=== PATIENT | male | born 1955 | race Caucasian/White ===

== ENCOUNTER 2023-07-16 21:31 | Observation (INO) ==
[2023-07-16] MEDS: SODIUM CHLORIDE 0.9% 1,000 ML IV SCH (22:37)
[2023-07-16 22:38] LABS: Basophils # (auto) 0.03 K/uL (0.00-0.20); Basophils % (auto) 0.3 %; Eosinophils # (auto) 0.09 K/uL (0.00-0.50); Eosinophils % (auto) 0.9 %; Hematocrit (blood only) 41.6 % (42.0-52.0); Hemoglobin 14.3 g/dl (14.0-18.0); Immature Granulocytes # (auto) 0.04 K/uL (0.01-0.20); Immature Granulocytes % (auto) 0.4 %; Lymphocytes # (auto) 1.63 K/uL (1.20-3.40); Lymphocytes % (auto) 16.4 %; Mean Corpuscular Hemoglobin 30.9 pg (25.0-34.0); Mean Corpuscular Hgb Conc 34.4 g/dL (32.0-36.0); Mean Corpuscular Volume 89.8 fL (80.0-100.0); Mean Platelet Volume 10.7 fL (9.4-12.4); Neutrophils # (auto) 7.55 K/uL (1.40-6.50); Platelet Count 286 K/uL (130-400); RDW Coefficient of Variation 11.2 % (11.5-14.5); RDW Standard Deviation 36.3 fL (36.4-46.3); Red Blood Count 4.63 M/uL (4.70-6.10); White Blood Count 9.94 K/ul (4.8-10.8)
[2023-07-16 22:53] LABS: Albumin Level 4.5 gm/dl (3.4-5.0); BUN Creatinine Ratio 21.9 (10-20); Bilirubin,Total 0.4 mg/dl (0.2-1.0); Calcium 9.7 mg/dl (8.6-10.3); Creatinine Clr Calc Pharmacy 68.2 ml/min; Est GFR (African American) 84.7 ml/min; Est GFR (Non-African American) 73.1 ml/min; Globulin 2.3 gm/dl (2.5-4.0); Magnesium 1.8 mg/dl (1.7-2.4); Potassium 4.1 mmol/L (3.5-5.1); Total Protein 6.8 gm/dl (6.0-8.3)
[2023-07-16 22:59] LABS: Troponin I High Sensitivity 7.7 pg/ml (0-20)
[2023-07-16 23:09] LABS: Thyroid Stimulating Hormone 5.997 uIu/ml (0.300-4.500)
[2023-07-16 23:33] LABS: Influenza A virus by PCR Negative (Neg); Influenza B virus by PCR Negative (Neg); RSV by PCR Negative (Neg); SARS CoV2 RNA(COVID-19) Ceph NEGATIVE (Negative)
[2023-07-16 23:45] LABS: T4 Free Thyroxine 1.04 ng/dl (0.61-1.60)
[2023-07-16 23:50] LABS: Appearance Urine Clear (Clear); Bilirubin Urine Negative (Negative); Blood Urine Negative (Negative); Color Urine Yellow; Glucose Urine UA 1+ (Negative); Ketones Urine Trace (Negative); Leukocyte Esterase Urine Negative (Negative); Nitrite Urine Negative (Negative); Protein Urine Negative (Negative); Specific Gravity Urine 1.022 (1.000-1.030); Urobilinogen Urine Negative (Negative); pH Urine 5.5 (4.5-7.5)
--- NOTE | 2023-07-17 01:32 | CT Scan Report ---
Exam(s): CTA HEAD With Contrast IV Amt: 117 ML OPTIRAY 320 EXAM: CT Angiography Head With Intravenous Contrast CLINICAL HISTORY: Stroke. TECHNIQUE: Axial computed tomographic angiography images of the head with intravenous contrast. 3D and MIPS images were created and reviewed. CTDI is 38 mGy and DLP is 546 mGy-cm. Automated exposure control was utilized for the study. A dose lowering technique was utilized adhering to the principles of ALARA. MIP reconstructed images were created and reviewed. CONTRAST: Patient received 117 ML OPTIRAY 320 of IV contrast COMPARISON: No relevant prior studies available. FINDINGS: Right internal carotid artery: No acute findings. Intracranial segment is patent with no significant stenosis. No aneurysm. Right anterior cerebral artery: Unremarkable. No occlusion or significant stenosis. No aneurysm. Right middle cerebral artery: Unremarkable. No occlusion or significant stenosis. No aneurysm. Right posterior cerebral artery: Unremarkable. No occlusion or significant stenosis. No aneurysm. Right vertebral artery: Unremarkable as visualized. Left internal carotid artery: No acute findings. Intracranial segment is patent with no significant stenosis. No aneurysm. Left anterior cerebral artery: Unremarkable. No occlusion or significant stenosis. No aneurysm. Left middle cerebral artery: Unremarkable. No occlusion or significant stenosis. No aneurysm. Left posterior cerebral artery: Unremarkable. No occlusion or significant stenosis. No aneurysm. Left vertebral artery: Unremarkable as visualized. Basilar artery: Unremarkable. No occlusion or significant stenosis. No aneurysm. IMPRESSION: No acute finding of the arteries of the head. Electronically signed by: Carmen Govea MD 07/17/23 01:31 AM
--- NOTE | 2023-07-17 01:34 | CT Scan Report ---
Exam(s): CTA NECK With Contrast IV Amt: 117 ML OPTIRAY 320 EXAM: CT Angiography Neck With Intravenous Contrast CLINICAL HISTORY: Stroke. TECHNIQUE: Routine carotid CT angiography protocol was performed with intravenous contrast. NASCET criteria using the distal ICAs for comparison were used for evaluation of stenoses. MIPS images were created and reviewed. CTDI is 38 mGy and DLP is 546 mGy-cm. Automated exposure control was utilized for the study. A dose lowering technique was utilized adhering to the principles of ALARA. MIP reconstructed images were created and reviewed. CONTRAST: Patient received 117 ML OPTIRAY 320 of IV contrast COMPARISON: None. FINDINGS: VASCULATURE: Right common carotid artery: Unremarkable. No occlusion or significant stenosis. No dissection. Right internal carotid artery: Unremarkable. Extracranial segment is patent with no occlusion or significant stenosis. No dissection. Right external carotid artery: Unremarkable. No occlusion. Right vertebral artery: Unremarkable. No occlusion or significant stenosis. No dissection. Left common carotid artery: There is atherosclerosis of the mid and distal left common carotid artery without significant stenosis. No dissection. Left internal carotid artery: Unremarkable. Extracranial segment is patent with no occlusion or significant stenosis. No dissection. Left external carotid artery: Unremarkable. No occlusion. Left vertebral artery: Hypoplastic left vertebral artery. No occlusion or significant stenosis. No dissection. NECK: Bones/joints: Unremarkable. No acute fracture. Soft tissues: Unremarkable. Lung apices: Clear. CAROTID STENOSIS REFERENCE USING NASCET CRITERIA: % ICA stenosis = (1 - narrowest ICA diameter/diameter of distal cervical ICA) x 100. Mild - <50% stenosis. Moderate - 50-69% stenosis. Severe - 70-94% stenosis. Near occlusion - 95-99% stenosis. Occluded - 100% stenosis. IMPRESSION: No acute findings of the arteries of the neck. Electronically signed by: Carmen Govea MD 07/17/23 01:33 AM
--- NOTE | 2023-07-17 01:38 | CT Scan Report ---
Exam(s): CT HEAD Without Contrast EXAM: CT Head Without Intravenous Contrast CLINICAL HISTORY: neuro deficit, acute stroke suspected. TECHNIQUE: Axial computed tomography images of the head/brain without intravenous contrast. CTDI is 38 mGy and DLP is 546 mGy-cm. Automated exposure control was utilized for the study. A dose lowering technique was utilized adhering to the principles of ALARA. COMPARISON: No relevant prior studies available. FINDINGS: Brain: No intracranial hemorrhage, mass-effect or midline shift. No abnormal extra axial fluid. No evidence of acute infarct. Mild periventricular white matter hypodensities are most consistent with chronic microangiopathy. Ventricles: Unremarkable. No ventriculomegaly. Bones/joints: Unremarkable. No acute fracture. Soft tissues: Unremarkable. Sinuses: Unremarkable as visualized. No acute sinusitis. Mastoid air cells: Unremarkable as visualized. No mastoid effusion. IMPRESSION: No acute intracranial finding. Electronically signed by: Carmen Govea MD 07/17/23 01:37 AM
--- NOTE | 2023-07-17 01:40 | Emergency Department Note ---
Impression & Plan Brain TIA, Hyperglycemia Admit to the [facility] ED Provider Note NAME: MAICOL CONCEPCION AGE: 68 SEX: Male INFORMANT: Patient ED PROVIDER(S): Shannen Berrios DO CHIEF COMPLAINT: Dizziness and left leg weakness PLAN: Disposition: Admit to the [facility] MEDICAL DECISION MAKING: This is a 68-year-old male patient with history of diabetes and hypertension who presents to the emergency department after an episode of dizziness, diaphoresis and left leg weakness. Patient describes his symptoms as sudden onset. He describes himself as trying to walk and ricocheted off of rainey until he was outside. Neuroexam here in the emergency department was back to normal. Laboratory studies revealed hyperglycemia with a blood sugar of 244. The patient does have a history of type 2 diabetes on metformin. He has no leukocytosis or anemia. COVID/flu testing was negative. Troponin was negative. EKG was unremarkable. TSH was 5.99. Urinalysis revealed trace ketones and 1+ glucose. She went for CT of the brain and CT angiograms of the neck and brain which were negative. I felt the patient require further workup/evaluation of TIA versus CVA. I discussed the case with the [facility] and they will evaluate for further inpatient care. Care/management discussed with: The patient and his Triage Nursing notes: Reviewed and agree with them. Vital Signs: reviewed and unremarkable Additional History obtained from: The is at the bedside Chronic Medical/Social Conditions affecting care: Diabetes and hypertension Differential Diagnosis: TIA, CVA, vertigo, orthostasis Diagnostics, independently interpreted by me: ECG: Normal sinus rhythm at a rate of 63 with PVCs. There is no ST segment elevation or signs of ischemia. Cardiac Monitoring: Normal sinus rhythm at a rate of 70 Imaging studies: Portable chest x-ray-as per my independent interpretation- cardiomegaly with no obvious pulmonary infiltrates or opacity CT scan of the brain: As per stat rad CTA of the brain: As per stat rad CTA of the neck: As per stat rad HPI: 68 year old Male arrives for evaluation of episode of diaphoresis, dizziness and left leg weakness. Patient was standing when he suddenly became extremely dizzy and diaphoretic. He thought he might pass out and noted that his left leg was weak. He began to stumble and as he and his describe that he was ricocheted and off the rainey to get outside. He continued to feel quite weak and was standing up against a wall outside when he remained diaphoretic and dizzy for a couple of minutes. He describes having previous episodes of dizziness but with no other associated symptoms that did not last quite this long. PAST MEDICAL HISTORY: Type 2 diabetes, hypertension, BPH, neuropathy, hypothyroidism, GERD, SOCIAL HISTORY: Patient lives with his and [place], HOME MEDICATIONS: See list ALLERGIES: None VITALS: See Below PHYSICAL EXAMINATION: HEENT: Head - normocephalic and atraumatic. Pupils are equal, round, and reactive to light. Extraocular eye muscles are intact and sclera are anicteric. Ears - bilaterally patent canals with noninjected tympanic membranes and no evidence of hemotympanum. Nose - moist nasal mucosa without discharge. Mouth - moist buccal mucosa. Oropharynx is nonerythematous and there is no tonsillar exudate or edema noted. Neck: Supple; no JVD, nuchal rigidity, cervical lymphadenopathy, or auscultated bruits. Heart: Regular rate and rhythm. There is a normal S1 and S2 with no murmurs, clicks, or gallops appreciated. Lungs: Clear to auscultation bilaterally with no wheezes, rales, or rhonchi. Abdomen: Soft, completely nontender, nondistended, with good bowel sounds. There are no palpable pulsatile masses or hepatosplenomegaly. There is no guarding, rigidity, or rebound noted. Extremities: No evidence of cyanosis, clubbing, or edema. There are easily palpable peripheral pulses. Neuro:The patient is awake and alert, oriented to day, time, and place. Muscle strength is 5/5 in all 4 extremities. The patient has equal music department chair strength and equal pedal push and pull. There are no cerebellar signs. Cranial nerves II through XII are grossly intact. Emergency department course: The patient was evaluated in room C-8. A complete history and physical was performed. Twelve-lead EKG was obtained as described above. An order was placed for continuous cardiac monitoring. The patient was in a normal sinus rhythm at a rate of 70. Laboratory studies were drawn as above. IV lock was initiated. Patient went for CT scan of the brain and CT angiograms of the brain and neck. I reviewed the results with the patient and his . I discussed the case with the [facility] Hospitalist and they will evaluate for further inpatient care. Past Med/Surg History Social History Smoking Status: Former smoker Second Hand Exposure: No; Do You Dip or Chew Tobacco: No; Tobacco Cessation Education Requested by Patient: No Hx Alcohol Use: Yes Alcohol type: beer Hx Substance Use: No Preferred Language: Bengali Communication Ability: Effective [employer] Network Technician Required: No Beliefs That Will Affect Care: None Current Living Situation: Spouse Other Information That Helps Us Care for You: No Feels Safe at Home: Yes Safety Concerns: Feels Safe At This Time Assistive Devices: Glasses and Hearing Aid - Bilateral Allergies Allergies Allergy/AdvReac Type Severity Reaction Status Date / Time No Known Allergies Allergy Verified 07/16/23 23:50 Home Meds Home Medications Medication Instructions Recorded Confirmed atorvastatin 20 mg tablet (Lipitor) 20 mg PO DAILY 07/16/23 07/16/23 cholecalciferol (vitamin D3) 125 125 mcg PO Q OTHER DAY 07/16/23 07/16/23 mcg (5,000 unit) tablet (Vitamin D3) cyanocobalamin (vitamin B-12) 5,000 mcg sublingual Q OTHER DAY 07/16/23 07/16/23 5,000 mcg sublingual tablet (Vitamin B-12) gabapentin 600 mg tablet 600 mg PO HS 07/16/23 07/16/23 levothyroxine 50 mcg tablet 50 mcg PO DAILY 07/16/23 07/16/23 losartan 100 mg tablet 100 mg PO DAILY 07/16/23 07/16/23 metformin 500 mg tablet 500 mg PO BID 07/16/23 07/16/23 [id number] tablet 1 tab PO DAILY 07/16/23 07/16/23 omeprazole 20 mg tablet,delayed 20 mg PO DAILY 07/16/23 07/16/23 release tamsulosin 0.4 mg capsule (Flomax) 0.4 mg PO DAILY 07/16/23 07/16/23 Results & Data (ED) Vital Signs Vital Signs - 24 hr 07/16/23 21:40 07/16/23 21:52 07/16/23 21:54 Temperature 36.7 C Temperature Source Temporal Artery Scan Pulse Rate 75 68 Pulse Rate [Apical] 70 Pulse Rate from SpO2 Sensor Pulse Rhythm [Apical] Regular Pulse Strength [Apical] Normal Respiratory Rate 18 17 Respiratory Effort / Characteristics Non-Labored Spontaneous Non-Labored Spontaneous Respiratory Depth Normal Normal Respiratory Pattern Regular Blood Pressure 175/79 H Blood Pressure [Right Arm] 171/109 H Blood Pressure Mean 111 Blood Pressure Mean [Right Arm] 129 Blood Pressure Position [Right Arm] Semi-fowlers Pulse Oximetry 98 97 Oxygen Delivery Method Room Air Room Air Sepsis Recent Fever Within 48 Hours No Sepsis New/Unexplained Change in Mental Status No Sepsis Action Taken by Nursing No Action Required 07/16/23 21:55 07/16/23 22:00 07/16/23 22:00 Temperature Temperature Source Pulse Rate 67 63 Pulse Rate [Apical] Pulse Rate from SpO2 Sensor 68 63 Pulse Rhythm [Apical] Pulse Strength [Apical] Respiratory Rate 13 13 Respiratory Effort / Characteristics Respiratory Depth Respiratory Pattern Blood Pressure 138/91 Blood Pressure [Right Arm] Blood Pressure Mean 105 Blood Pressure Mean [Right Arm] Blood Pressure Position [Right Arm] Pulse Oximetry 97 96 Oxygen Delivery Method Sepsis Recent Fever Within 48 Hours Sepsis New/Unexplained Change in Mental Status Sepsis Action Taken by Nursing 07/16/23 22:30 07/16/23 22:30 07/16/23 23:00 Temperature Temperature Source Pulse Rate 65 70 Pulse Rate [Apical] Pulse Rate from SpO2 Sensor 65 Pulse Rhythm [Apical] Pulse Strength [Apical] Respiratory Rate 10 L 21 Respiratory Effort / Characteristics Respiratory Depth Respiratory Pattern Blood Pressure 144/87 H Blood Pressure [Right Arm] Blood Pressure Mean 101 Blood Pressure Mean [Right Arm] Blood Pressure Position [Right Arm] Pulse Oximetry 97 Oxygen Delivery Method Sepsis Recent Fever Within 48 Hours Sepsis New/Unexplained Change in Mental Status Sepsis Action Taken by Nursing 07/16/23 23:01 07/16/23 23:01 07/16/23 23:32 Temperature Temperature Source Pulse Rate 71 78 Pulse Rate [Apical] Pulse Rate from SpO2 Sensor 70 79 Pulse Rhythm [Apical] Pulse Strength [Apical] Respiratory Rate 20 18 Respiratory Effort / Characteristics Respiratory Depth Respiratory Pattern Blood Pressure 103/78 149/86 H Blood Pressure [Right Arm] Blood Pressure Mean 93 107 Blood Pressure Mean [Right Arm] Blood Pressure Position [Right Arm] Pulse Oximetry 95 97 Oxygen Delivery Method Room Air Sepsis Recent Fever Within 48 Hours Sepsis New/Unexplained Change in Mental Status Sepsis Action Taken by Nursing 07/16/23 23:38 07/17/23 00:00 07/17/23 01:11 Temperature Temperature Source Pulse Rate 63 73 Pulse Rate [Apical] Pulse Rate from SpO2 Sensor 64 72 Pulse Rhythm [Apical] Pulse Strength [Apical] Respiratory Rate 16 10 L Respiratory Effort / Characteristics Respiratory Depth Respiratory Pattern Blood Pressure 143/90 H Blood Pressure [Right Arm] Blood Pressure Mean 107 Blood Pressure Mean [Right Arm] Blood Pressure Position [Right Arm] Pulse Oximetry 98 97 94 Oxygen Delivery Method Room Air Room Air Sepsis Recent Fever Within 48 Hours Sepsis New/Unexplained Change in Mental Status Sepsis Action Taken by Nursing 07/17/23 01:12 07/17/23 01:12 07/17/23 01:30 Temperature Temperature Source Pulse Rate 63 64 Pulse Rate [Apical] Pulse Rate from SpO2 Sensor 62 62 Pulse Rhythm [Apical] Pulse Strength [Apical] Respiratory Rate 19 19 Respiratory Effort / Characteristics Respiratory Depth Respiratory Pattern Blood Pressure 142/94 H Blood Pressure [Right Arm] Blood Pressure Mean 98 Blood Pressure Mean [Right Arm] Blood Pressure Position [Right Arm] Pulse Oximetry 96 93 Oxygen Delivery Method Sepsis Recent Fever Within 48 Hours Sepsis New/Unexplained Change in Mental Status Sepsis Action Taken by Nursing 07/17/23 01:30 07/17/23 01:44 07/17/23 02:02 Temperature Temperature Source Pulse Rate 56 L 71 Pulse Rate [Apical] Pulse Rate from SpO2 Sensor Pulse Rhythm [Apical] Pulse Strength [Apical] Respiratory Rate 12 Respiratory Effort / Characteristics Respiratory Depth Respiratory Pattern Blood Pressure 143/76 H Blood Pressure [Right Arm] Blood Pressure Mean 98 Blood Pressure Mean [Right Arm] Blood Pressure Position [Right Arm] Pulse Oximetry Oxygen Delivery Method Sepsis Recent Fever Within 48 Hours Sepsis New/Unexplained Change in Mental Status Sepsis Action Taken by Nursing 07/17/23 02:18 Temperature Temperature Source Pulse Rate Pulse Rate [Apical] 61 Pulse Rate from SpO2 Sensor Pulse Rhythm [Apical] Regular Pulse Strength [Apical] Normal Respiratory Rate 17 Respiratory Effort / Characteristics Non-Labored Respiratory Depth Normal Respiratory Pattern Regular Blood Pressure Blood Pressure [Right Arm] 143/76 H Blood Pressure Mean Blood Pressure Mean [Right Arm] 98 Blood Pressure Position [Right Arm] Lying Pulse Oximetry 97 Oxygen Delivery Method Room Air Sepsis Recent Fever Within 48 Hours Sepsis New/Unexplained Change in Mental Status Sepsis Action Taken by Nursing Laboratory Data 07/17/23 06:50 07/17/23 06:50 Lab Results 07/16/23 07/16/23 07/16/23 Range/Units 21:44 21:51 22:40 WBC 9.94 (4.8-10.8) K/ul RBC 4.63 L (4.70-6.10) M/uL Hgb 14.3 (14.0-18.0) g/dl Hct 41.6 L (42.0-52.0) % MCV 89.8 (80.0-100.0) fL MCH 30.9 (25.0-34.0) pg MCHC 34.4 (32.0-36.0) g/dL RDW Std Deviation 36.3 L (36.4-46.3) fL RDW Coeff of Robbie 11.2 L (11.5-14.5) % Plt Count 286 (130-400) K/uL MPV 10.7 (9.4-12.4) fL Immature Gran % (Auto) 0.4 % Neut % (Auto) 76.0 % Lymph % (Auto) 16.4 % [place]pine % (Auto) 6.0 % Eos % (Auto) 0.9 % Baso % (Auto) 0.3 % Neut # (Auto) 7.55 H (1.40-6.50) K/uL Lymph # (Auto) 1.63 (1.20-3.40) K/uL Alpine # (Auto) 0.60 H (0.11-0.59) K/uL Eos # (Auto) 0.09 (0.00-0.50) K/uL Baso # (Auto) 0.03 (0.00-0.20) K/uL Immature Gran # (Auto) 0.04 (0.01-0.20) K/uL Sodium 137 (136-145) mmol/L Potassium 4.1 (3.5-5.1) mmol/L Chloride 105 (98-107) mmol/L Carbon Dioxide 25 (21-32) mmol/L Anion Gap 7 (3-11) BUN 23 (6-23) mg/dl Creatinine 1.05 (0.6-1.4) mg/dl Est Cr Clr Drug Dosing 68.2 ml/min Est GFR ( Amer) 84.7 ml/min Est GFR (Non-Af Amer) 73.1 ml/min BUN/Creatinine Ratio 21.9 H (10-20) Glucose 244 H (70-99(Fasting)) mg/dl POC Glucose 206 H (70-99) mg/dl Calcium 9.7 (8.6-10.3) mg/dl Magnesium 1.8 (1.7-2.4) mg/dl Total Bilirubin 0.4 (0.2-1.0) mg/dl AST 15 (13-39) U/L ALT 30 (7-52) U/L Alkaline Phosphatase 67 (34-104) U/L Troponin I High Sens 7.7 (0-20) pg/ml Total Protein 6.8 (6.0-8.3) gm/dl Albumin 4.5 (3.4-5.0) gm/dl Globulin 2.3 L (2.5-4.0) gm/dl Albumin/Globulin Ratio 2.0 (0.9-2) TSH 5.997 H (0.300-4.500) uIu/ml Free T4 1.04 (0.61-1.60) ng/dl Urine Color Urine Appearance (Clear) Urine pH (4.5-7.5) Ur Specific [place] (1.000-1.030) Urine Protein (Negative) Urine Glucose (UA) (Negative) Urine Ketones (Negative) Urine Blood (Negative) Urine Nitrite (Negative) Urine Bilirubin (Negative) Urine Urobilinogen (Negative) Ur Leukocyte Esterase (Negative) SARS-CoV-2 (PCR) NEGATIVE (Negative) Influenza Type A (PCR) Negative (Neg) Influenza Type B (PCR) Negative (Neg) RSV (RT-PCR) Negative (Neg) 07/16/23 07/16/23 Range/Units 23:32 23:52 WBC (4.8-10.8) K/ul RBC (4.70-6.10) M/uL Hgb (14.0-18.0) g/dl Hct (42.0-52.0) % MCV (80.0-100.0) fL MCH (25.0-34.0) pg MCHC (32.0-36.0) g/dL RDW Std Deviation (36.4-46.3) fL RDW Coeff of Robbie (11.5-14.5) % Plt Count (130-400) K/uL MPV (9.4-12.4) fL Immature Gran % (Auto) % Neut % (Auto) % Lymph % (Auto) % Alpine % (Auto) % Eos % (Auto) % Baso % (Auto) % Neut # (Auto) (1.40-6.50) K/uL Lymph # (Auto) (1.20-3.40) K/uL Alpine # (Auto) (0.11-0.59) K/uL Eos # (Auto) (0.00-0.50) K/uL Baso # (Auto) (0.00-0.20) K/uL Immature Gran # (Auto) (0.01-0.20) K/uL Sodium (136-145) mmol/L Potassium (3.5-5.1) mmol/L Chloride (98-107) mmol/L Carbon Dioxide (21-32) mmol/L Anion Gap (3-11) BUN (6-23) mg/dl Creatinine (0.6-1.4) mg/dl Est Cr Clr Drug Dosing ml/min Est GFR ( Amer) ml/min Est GFR (Non-Af Amer) ml/min BUN/Creatinine Ratio (10-20) Glucose (70-99(Fasting)) mg/dl POC Glucose (70-99) mg/dl Calcium (8.6-10.3) mg/dl Magnesium (1.7-2.4) mg/dl Total Bilirubin (0.2-1.0) mg/dl AST (13-39) U/L ALT (7-52) U/L Alkaline Phosphatase (34-104) U/L Troponin I High Sens 7.8 (0-20) pg/ml Total Protein (6.0-8.3) gm/dl Albumin (3.4-5.0) gm/dl Globulin (2.5-4.0) gm/dl Albumin/Globulin Ratio (0.9-2) TSH (0.300-4.500) uIu/ml Free T4 (0.61-1.60) ng/dl Urine Color Yellow Urine Appearance Clear (Clear) Urine pH 5.5 (4.5-7.5) Ur Specific [place] 1.022 (1.000-1.030) Urine Protein Negative (Negative) Urine Glucose (UA) 1+ H (Negative) Urine Ketones Trace H (Negative) Urine Blood Negative (Negative) Urine Nitrite Negative (Negative) Urine Bilirubin Negative (Negative) Urine Urobilinogen Negative (Negative) Ur Leukocyte Esterase Negative (Negative) SARS-CoV-2 (PCR) (Negative) Influenza Type A (PCR) (Neg) Influenza Type B (PCR) (Neg) RSV (RT-PCR) (Neg) Administered Medications Aspirin (Aspirin 81 Mg Ectab) 81 mg PO QAM [facility] Stop: 08/16/23 08:59 Last Admin: 07/17/23 09:30 Dose: 81 mg Documented By: BUCK Atorvastatin Calcium (Atorvastatin 40 Mg Tab) 40 mg PO DAILY [facility] Stop: 08/16/23 08:59 Last Admin: 07/17/23 09:31 Dose: 40 mg Documented By: BUCK Clopidogrel Bisulfate (Clopidogrel Bisulfate 75 Mg Tab) [facility] Stop: 08/16/23 08:59 Last Admin: 07/17/23 09:30 Dose: 75 mg Documented By: BUCK Enoxaparin Sodium (Enoxaparin Inj 40 Mg/0.4 Ml Syr) 40 mg SQ Q24H [facility] Stop: 08/16/23 12:29 Last Admin: 07/17/23 13:59 Dose: Not Given Documented By: BUCK Insulin Aspart (Insulin Aspart Per Unit Charge) 0 units SC ACHS [facility] Stop: 08/16/23 07:29 Last Admin: 07/17/23 18:07 Dose: 6 units Documented By: NATASHA Co-signed By: SHLEL Admin: 07/17/23 13:57 Dose: 3 units Documented By: BUCK Co-signed By: ED Admin: 07/17/23 09:52 Dose: 2 units Documented By: BUCK Co-signed By: AURELIA Levothyroxine Sodium (Levothyroxine Sodium 50 Mcg Tablet) [facility] Stop: 08/16/23 06:29 Last Admin: 07/17/23 06:06 Dose: 50 mcg Documented By: KESHAWN Multivitamins/Minerals (Cerovite Adv Formula Tab) 1 tab PO DAILY [facility] Stop: 08/16/23 08:59 Last Admin: 07/17/23 09:31 Dose: 1 tab Documented By: BUCK Pantoprazole Sodium (Pantoprazole 40 Mg Tab) 40 mg PO DAILY [facility] Stop: 08/16/23 08:59 Last Admin: 07/17/23 09:32 Dose: 40 mg Documented By: BUCK Tamsulosin HCl (Tamsulosin Hcl 0.4 Mg Cap) 0.4 mg PO DAILY [facility] Stop: 08/16/23 08:59 Last Admin: 07/17/23 09:32 Dose: 0.4 mg Documented By: BUCK Discontinued Medications Aspirin (Aspirin 81 Mg Chew) 324 mg PO ONE ONE Stop: 07/17/23 03:33 Last Admin: 07/17/23 03:52 Dose: 324 mg Documented By: KESHAWN Sodium Chloride (Nss) 1,000 mls @ 999 mls/hr IV .Q1H1M [facility] Stop: 07/16/23 23:30 Last Infusion: 07/16/23 23:37 Dose: Infused Documented By: Admin: 07/16/23 22:37 Dose: 999 mls/hr Documented By: ROMA Imaging Data Radiologist's Impression: Chest X-Ray 07/16/23 22:20 SINGLE VIEW CHEST CLINICAL HISTORY: Generalized weakness. FINDINGS: An AP, portable, upright chest radiograph is obtained. No prior studies are available for comparison at the time of dictation. The cardiomediastinal silhouette is top normal for projection. There is mild bibasilar atelectasis. The lungs and pleural spaces are otherwise clear. No pneumothorax is seen. The bony thorax is grossly intact. IMPRESSION: No active disease in the chest. ACT 112: Negative or not required by law. Electronically signed by: Tate Morales M.D. 07/17/2023 7:32 AM Discharge Plan Visit Data Chief Complaint: Syncope (Near Syncope) Stated Complaint: DIZZY, SWEATING, ALMOST FAINTED ED Provider: Shannen Berrios Discharge Problem: Brain TIA, Hyperglycemia Patient Disposition: Admitted As Inpatient Discharge Instructions Interventions: ED Discharge Assessment Last Done: 07/17/23 02:58
--- NOTE | 2023-07-17 02:27 | History & Physical Report ---
Date of Service July 17, 2023 Assessment & Plan (1) TIA (transient ischemic attack): Plan: - Concern for TIA given symptoms - HAs had multiple episodes of dizziness, so arrhythmia also possible. Will monitor on tele, could consider street light wirer as an outpatient - EKG with NSR, PVC; trop=7.8 - CT Head/CTA Head and Neck unremarkable - MRI Brain pending - TTE pending - s/p 324 asp; will plan to start with asp daily, would consider DAPT x 21 days with Plavix pending rest of work-up - continue statin, repeat lipid panel qAM and adjust as appropriate (2) HLD (hyperlipidemia): Plan: - continue statin, repeat lipid panel qAM and adjust as appropriate (3) HTN (hypertension): Plan: - hold losartan, allow for permissive HTN (4) Hypothyroid: Plan: - continue levothyroxine - elevated TSH, with normal free T4; would repeat in 4-6 weeks after acute illness (5) DM2 (diabetes mellitus, type 2): Plan: - hold metformin, SSI while in patient - repeat hemoglobin a1c qAM (6) Neuropathy: Plan: - continue gabapentin (7) GERD (gastroesophageal reflux disease): Plan: - continue pantoprazole Plan Diet: DM2 pending dysphagia screen VTE Prophylaxis: Lovenox Code: Full History of Present Illness Primary Care Provider: Jacques Bender DO 68 year old male with a past medical history of HLD, neuropathy, hypothyrosis, HTN, DM2, GERD presenting [place] [employer] [place]. When leaving the concert began to feel lightheaded. Within a few seconds noticed weakness of left leg. Was able to walk out of the building and symptoms resolved within a few minutes. Notes that he was had episodes of lightheadedness like this before, twice in the last year but they normally normally last about 30s. Denies headache, vision change, chest pain, dyspnea. Symptoms have resolved. Denies any further dizziness, lightheadedness, weakness. In ED: CT Head, CTA Head/Neck unremarkable Allergies Allergy/AdvReac Type Severity Reaction Status Date / Time No Known Allergies Allergy Verified 07/16/23 23:50 Home Medications Medication Instructions Recorded Confirmed Type atorvastatin 20 mg tablet (Lipitor) 20 mg PO DAILY 07/16/23 07/16/23 History cholecalciferol (vitamin D3) 125 125 mcg PO Q OTHER DAY 07/16/23 07/16/23 History mcg (5,000 unit) tablet (Vitamin D3) cyanocobalamin (vitamin B-12) 5,000 mcg sublingual Q OTHER DAY 07/16/23 07/16/23 History 5,000 mcg sublingual tablet (Vitamin B-12) gabapentin 600 mg tablet 600 mg PO HS 07/16/23 07/16/23 History levothyroxine 50 mcg tablet 50 mcg PO DAILY 07/16/23 07/16/23 History losartan 100 mg tablet 100 mg PO DAILY 07/16/23 07/16/23 History metformin 500 mg tablet 500 mg PO BID 07/16/23 07/16/23 History iropkvonotaz-rabuwzii-ygspkc tablet 1 tab PO DAILY 07/16/23 07/16/23 History omeprazole 20 mg tablet,delayed 20 mg PO DAILY 07/16/23 07/16/23 History release tamsulosin 0.4 mg capsule (Flomax) 0.4 mg PO DAILY 07/16/23 07/16/23 History Past Med/Surg History Social History Smoking Status: Former smoker Second Hand Exposure: No; Do You Dip or Chew Tobacco: No; Tobacco Cessation Education Requested by Patient: No Hx Alcohol Use: Yes Alcohol type: beer Hx Substance Use: No Preferred Language: Occitan Communication Ability: Effective 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 Beliefs That Will Affect Care: None Current Living Situation: Spouse Other Information That Helps Us Care for You: No Feels Safe at Home: Yes Safety Concerns: Feels Safe At This Time Assistive Devices: Glasses and Hearing Aid - Bilateral Review of Systems Review of Systems: As per above Physical Exam Physical Exam: Constitutional: well-appearing, no acute distress HEENT: NCAT, no conjunctival injection CV: regular rhythm, no murmur appreciated, extremities well-perfused, no LE edema Resp: CTABL, no wheezes/rales/rhonchi appreciated, no increased work of breathing GI: soft, nondistended, nontender MSK: no gross deformities appreciated Skin: warm, dry, no rash appreciated Neuro: alert, oriented, no focal neurologic deficit appreciated. CN II-XII intact, PERRLA, EOMI, Strength 5/5 UE/LE B/L Results & Data Results & Data Vital Signs (Past 12 Hours) Vital Signs Temp Pulse Pulse Resp BP BP Pulse Ox 07/17/23 01:44 56 L 07/17/23 00:00 63 16 143/90 H 97 07/16/23 23:38 98 07/16/23 23:32 78 18 149/86 H 97 07/16/23 23:01 71 20 95 07/16/23 23:01 103/78 07/16/23 23:00 70 21 07/16/23 22:30 65 10 L 97 07/16/23 22:30 144/87 H 07/16/23 22:00 63 13 96 07/16/23 22:00 138/91 07/16/23 21:55 67 13 97 07/16/23 21:54 68 07/16/23 21:52 70 17 171/109 H 97 07/16/23 21:40 36.7 C 75 18 175/79 H 98 O2 Del Method 07/17/23 01:44 07/17/23 00:00 Room Air 07/16/23 23:38 Room Air 07/16/23 23:32 Room Air 07/16/23 23:01 07/16/23 23:01 07/16/23 23:00 07/16/23 22:30 07/16/23 22:30 07/16/23 22:00 07/16/23 22:00 07/16/23 21:55 07/16/23 21:54 07/16/23 21:52 Room Air 07/16/23 21:40 Room Air Supervising Physician Co-Signing Physician Notes Attending addendum: I have physically seen this patient, have supervised the medical residents activities, and agree with the H&P unless as otherwise noted. Assessment and Plan: TIA- CT head negative, CTA head and neck negative, chest x-ray no acute findings COVID/flu/RSV testing negative Symptoms of dizziness, sweats and left lower extremity weakness have resolved by the time of arrival to the ED Differential including limited to TIA, CVA, complicated migraine The patient will be admitted to telemetry for serial cardiac enzymes, serial EKG's, cardiac rhythm monitoring and a 2-D echocardiogram with Dopplers. MRI brain with contrast ordered Stroke without tPA order set Hypertension- Mild permissive hypertension, holding losartan Diabetes mellitus- Hold metformin Placed on Accu-Cheks with NovoLog SSI Remaining orders and notations as noted Resident Activity Tracking Resident Involvement: Resident Care Provided Care Provided: Adult [facility] Medicine
[2023-07-17] MEDS ORDERED: PHARMACIST DISCHARGE MED REC CONSULT PRN (02:40)
[2023-07-17] MEDS ORDERED: GLUCAGON FOR INJ 1 MG VIAL SQ PRN (03:32)
[2023-07-17] MEDS ORDERED: GLUCOSE 10 TAB/TUBE PO PRN (03:32)
[2023-07-17] MEDS ORDERED: CARBOHYDRATES FOR HYPOGLYCEMIA PO PRN (03:32)
[2023-07-17] MEDS ORDERED: DEXTROSE 50% 50 ML SYRINGE IV PRN (03:32)
[2023-07-17] MEDS ORDERED: GLUCOSE 40% GEL 15 GM TUBE PO PRN (03:32)
[2023-07-17] MEDS: ASPIRIN 81 MG CHEW PO ONE (03:52)
[2023-07-17] MEDS: LEVOTHYROXINE SODIUM 50 MCG TABLET PO SCH (06:06)
[2023-07-17 07:23] LABS: Basophils # (auto) 0.03 K/uL (0.00-0.20); Basophils % (auto) 0.3 %; Eosinophils # (auto) 0.08 K/uL (0.00-0.50); Eosinophils % (auto) 0.8 %; Hematocrit (blood only) 35.4 % (42.0-52.0); Hemoglobin 12.7 g/dl (14.0-18.0); Immature Granulocytes # (auto) 0.04 K/uL (0.01-0.20); Immature Granulocytes % (auto) 0.4 %; Lymphocytes # (auto) 1.65 K/uL (1.20-3.40); Lymphocytes % (auto) 16.9 %; Mean Corpuscular Hemoglobin 31.5 pg (25.0-34.0); Mean Corpuscular Hgb Conc 35.9 g/dL (32.0-36.0); Mean Corpuscular Volume 87.8 fL (80.0-100.0); Mean Platelet Volume 10.6 fL (9.4-12.4); Monocytes # (auto) 0.57 K/uL (0.11-0.59); Monocytes % (auto) 5.8 %; Neutrophils # (auto) 7.41 K/uL (1.40-6.50); Neutrophils % (auto) 75.8 %; Platelet Count 248 K/uL (130-400); RDW Coefficient of Variation 11.1 % (11.5-14.5); RDW Standard Deviation 35.7 fL (36.4-46.3); Red Blood Count 4.03 M/uL (4.70-6.10); White Blood Count 9.78 K/ul (4.8-10.8)
--- NOTE | 2023-07-17 07:33 | XRay Report ---
SINGLE VIEW CHEST CLINICAL HISTORY: Generalized weakness. FINDINGS: An AP, portable, upright chest radiograph is obtained. No prior studies are available for c omparison at the time of dictation. The cardiomediastinal silhouette is top normal for projection. Th ere is mild bibasilar atelectasis. The lungs and pleural spaces are otherwise clear. No pneumothorax is seen. The bony thorax is grossly intact. IMPRESSION: No active disease in the chest. ACT 112: Negative or not required by law. Electronically signed by: Tate Morales M.D. 07/17/2023 7:32 AM
--- NOTE | 2023-07-17 07:34 | Hospitalist Progress Note ---
Date of Service July 17, 2023 Assessment & Plan (1) TIA (transient ischemic attack): Plan: - Presentation concerning for acute TIA given LLE weakness, now resolved - Patient with multiple similar episodes which included lightheadedness, and diaphoresis in the past Differential includes arrhythmias, notably bradyarrhythmias as patient notes low BPs at home into 40s Recommend outpatient cardiac monitoring w/ PCP - Head CT & Neck/Head CTA unremarkable - Brain MRI negative - TTE Pending - S/p 325 mg Aspirin on admission, continue DAPT w/ Aspirin 81 mg and Plavix 75 mg for at least 21 days post TIA - Increase statin to high intensity dosing, now on Atorvastatin 40 mg PO daily Lipid profile unremarkable - Continue to modify risk factors including smoking hx, HTN, HLD, and DM Further management as below (2) HLD (hyperlipidemia): Plan: - As above (3) HTN (hypertension): Plan: - Losartan held for permissive HTN (4) Hypothyroid: Plan: - continue levothyroxine - elevated TSH, with normal free T4; would repeat in 4-6 weeks after acute illness (5) DM2 (diabetes mellitus, type 2): Plan: - hold metformin, SSI while in patient - A1c elevated to 7.8, consider regimen modifications as outpatient - Target A1c < 7 (6) Neuropathy: Plan: - continue gabapentin (7) GERD (gastroesophageal reflux disease): Plan: - continue pantoprazole Plan Diet: DM2, Heart Healthy VTE Prophylaxis: Lovenox Code: Full Admission and Anticipated Discharge Date Admission Date: July 17, 2023 Supervising Physician Co-Signing Physician Notes Attending Physician Supervision Note: I independently interviewed and examined the patient and verified the leung history and physical, reviewed labs and image studies and agree with findings and care plan noted above. Left leg weakness with difficulty ambulation and associated dizziness - -high risk for TIA - brain MRI neg. DAPT initated and statin increased to moderate intensity. Dizziness - -awaiting echo results. No arrhythmia on Tele. check orthostatics. On flomax. Sid Hauser is a 68 year old male with a PMH significant for T2DM, HTN, HLD who presented to the ED yesterday for evaluation of left leg weakness, light- headedness, and diaphoresis. Patient reports that he was standing in a room when he suddenly became light-headed and diaphoretic. He felt as if he may pass out and when he tried to walk to a nearby area to sit, he noticed left leg weakness which he describes as his leg feeling "like a noodle." He notes that he had a slight loss of balance and that he was stumbling throughout the room. His describes it as him crashing into rainey as he was trying to make his way outside. He notes that his leg still felt quite weak even when he was standing up against a wall outside. He remained diaphoretic and dizzy as well. The entire episode lasted for about [address] to the hospital, his had taken his blood pressure and reports that his blood pressure was 152/90. Luca does endorse a history of episodic light-headedness but symptoms are generally transient and last less than a minute and his past episodes are not accompanied by diaphoresis and extremity weakness. He notes that during this most recent episode he did not have any blurry vision, facial drooping, or speech difficulty. He has 20-pack year history of smoking but has quit about 30 years ago. He denies any fever, chills, chest pain, or shortness of breath. No history of arrhythmias or afib. Review of Systems Review of Systems: Negative except those stated in the HPI. Physical Exam Physical Exam: Constitutional: well-appearing and not in acute distress HEENT: NCAT, extraocular motions are intact, pupils are equal and reactive to light, no conjunctival injection CV: regular rhythm, no murmur appreciated, extremities well-perfused, no LE edema Resp: clear to auscultation bilaterally, no wheezes/rales/rhonchi appreciated, no increased work of breathing GI: soft, nondistended, nontender MSK: no gross deformities appreciated Skin: warm, dry, no rash appreciated Neuro: alert, oriented, no focal neurologic deficit appreciated. CN II-XII intact, Strength 5/5 bilaterally in both upper and lower extremities. Diminished sensation to vibration in both R and L lower extremities. Results & Data Results & Data Vital Signs (Past 12 Hours) Vital Signs Temp Pulse Pulse Resp BP BP Pulse Ox 07/17/23 07:15 58 L 14 144/89 H 99 07/17/23 06:00 53 L 18 95 07/17/23 05:30 53 L 15 95 07/17/23 05:30 157/126 H 07/17/23 05:00 54 L 17 95 07/17/23 05:00 152/102 H 07/17/23 04:30 51 L 16 96 07/17/23 04:30 156/96 H 07/17/23 04:00 51 L 15 97 07/17/23 04:00 145/81 H 07/17/23 03:30 169/91 H 07/17/23 03:30 51 L 17 97 07/17/23 03:01 55 L 12 152/80 H 96 07/17/23 03:00 53 L 12 94 07/17/23 02:30 56 L 17 136/77 94 07/17/23 02:29 95 07/17/23 02:18 61 17 143/76 H 97 07/17/23 02:02 71 12 07/17/23 01:44 56 L 07/17/23 01:30 143/76 H 07/17/23 01:30 64 19 93 07/17/23 01:12 63 19 96 07/17/23 01:12 142/94 H 07/17/23 01:11 73 10 L 94 07/17/23 00:00 63 16 143/90 H 97 07/16/23 23:38 98 07/16/23 23:32 78 18 149/86 H 97 07/16/23 23:01 71 20 95 07/16/23 23:01 103/78 07/16/23 23:00 70 21 07/16/23 22:30 65 10 L 97 07/16/23 22:30 144/87 H 07/16/23 22:00 63 13 96 07/16/23 22:00 138/91 07/16/23 21:55 67 13 97 07/16/23 21:54 68 07/16/23 21:52 70 17 171/109 H 97 07/16/23 21:40 36.7 C 75 18 175/79 H 98 O2 Del Method 07/17/23 07:15 Room Air 07/17/23 06:00 07/17/23 05:30 07/17/23 05:30 07/17/23 05:00 07/17/23 05:00 07/17/23 04:30 07/17/23 04:30 07/17/23 04:00 07/17/23 04:00 07/17/23 03:30 07/17/23 03:30 07/17/23 03:01 Room Air 07/17/23 03:00 07/17/23 02:30 Room Air 07/17/23 02:29 Room Air 07/17/23 02:18 Room Air 07/17/23 02:02 07/17/23 01:44 07/17/23 01:30 07/17/23 01:30 07/17/23 01:12 07/17/23 01:12 07/17/23 01:11 07/17/23 00:00 Room Air 07/16/23 23:38 Room Air 07/16/23 23:32 Room Air 07/16/23 23:01 07/16/23 23:01 07/16/23 23:00 07/16/23 22:30 07/16/23 22:30 07/16/23 22:00 07/16/23 22:00 07/16/23 21:55 07/16/23 21:54 07/16/23 21:52 Room Air 07/16/23 21:40 Room Air Resident Activity Tracking Resident Involvement: Resident Care Provided Care Provided: Adult Hospital Medicine
[2023-07-17 07:43] LABS: BUN Creatinine Ratio 22.6 (10-20); Calcium 8.5 mg/dl (8.6-10.3); Est GFR (African American) 98.1 ml/min; Est GFR (Non-African American) 84.6 ml/min; Potassium 4.3 mmol/L (3.5-5.1)
[2023-07-17 08:15] LABS: Estimated Average Glucose 177 mg/dl; Hemoglobin A1C 7.8 % (4.5-5.6)
[2023-07-17] MEDS ORDERED: ATORVASTATIN 20 MG TAB PO SCH (09:00)
[2023-07-17] MEDS: CLOPIDOGREL BISULFATE 75 MG TAB PO SCH (09:30)
[2023-07-17] MEDS: ASPIRIN 81 MG ECTAB PO SCH (09:30)
[2023-07-17] MEDS: CEROVITE ADV FORMULA TAB PO SCH (09:31)
[2023-07-17] MEDS: ATORVASTATIN 40 MG TAB PO SCH (09:31)
[2023-07-17] MEDS: PANTOprazole 40 MG TAB PO SCH (09:32)
[2023-07-17] MEDS: TAMSULOSIN HCL 0.4 MG CAP PO SCH (09:32)
[2023-07-17] MEDS: INSULIN ASPART PER UNIT CHARGE SC SCH (09:52)
--- NOTE | 2023-07-17 12:44 | Magnetic Resonance Report ---
MRI OF THE BRAIN WITHOUT IV CONTRAST CLINICAL HISTORY: Transient ischemic attack COMPARISON STUDY: CT of the brain dated 07/17/2023. TECHNIQUE: MRI of the brain was performed utilizing various T1 and T2-weighted sequences in the axial , sagittal, and coronal planes. IV contrast was not administered for this examination. FINDINGS: Brain parenchyma: There is age-related involutional change noting mild microangiopathic disease. Ther e is no hemorrhage or mass effect. There is no restricted diffusion to suggest acute ischemia. Keith-w atul matter differentiation is preserved. No extra-axial fluid collection is seen. The cerebellar ton sils are normal in configuration. Mineralization is noted in the ganglia. Ventricles, sulci, and cisterns: Prominent secondary to change. Pituitary and sella: Unremarkable. Intracranial vasculature: Normal flow voids are maintained at the skull base. Orbits: The bony orbits are grossly intact. Orbital contents are normal in appearance. Sinuses and mastoids: Clear. Calvarium: Unremarkable. Cervical cord: Partially visualized cervical spinal cord is normal in morphology and signal intensity . IMPRESSION: No acute intracranial abnormality. ACT 112: Negative or not required by law. Electronically signed by: Tate Morlaes M.D. 07/17/2023 12:42 PM
[2023-07-17] MEDS: ENOXAPARIN INJ 40 MG/0.4 ML SYR SQ SCH (13:59)
--- NOTE | 2023-07-17 19:01 | Billing Data ---
Date of Service July 17, 2023 Coding Level of Care Code 06071 INT INP/OBS CARE
[2023-07-17] MEDS: GABAPENTIN 600 MG TAB PO SCH (20:11)
[2023-07-17] MEDS: CYANOCOBALAMIN (B-12) 2,500 MCG TABLET SL SCH (20:11)
--- OUTSIDE RECORDS SUMMARY | 2023-07-18 03:47 | External Medical Summary | Continuity of Care Document ---
Author Name Unknown Organization [facility] Address [address], [place] [id number] Care Team Providers Care Pit Crane Operator Name Role Phone Jacques Bender Primary Care Physician [phone] [id number] Date(s): 02/17/23 - 02/17/[address] [place] [address] Discharge Disposition: Home or Self Care Attending Physician: MD Carpenter Scott J Referring Physician: MD Carpenter Scott J Results Radiology Reports * Exam Date Time Procedure Performing Provider Status 02/17/23 5:44 PM MRI Brain w/ + w/o Contrast Cheli Engel; Final Notes: (MRI Brain w/ + w/o Contrast) Reason For Exam: OUTSIDE MRI IAC INTERNAL AUDITORY CANAL W.WO Report EXAMINATION: MRI Brain w/ + w/o Contrast CLINICAL HISTORY: H93.13: Tinnitus, bilateral OUTSIDE MRI IAC INTERNAL AUDITORY CANAL W.WO COMPARISON: None TECHNIQUE: Long and short axis fat and water weighted sequences of the brain without and with contrast. Axial diffusion-weighted imaging. Axial susceptibility weighted imaging. CONTRAST: Gadavist 8.5 mL IV FINDINGS: MRI BRAIN: Cerebral parenchyma: Normal gonzalez-white differentiation. No restricted diffusion. Mild periventricular and subcortical gliosis compatible chronic small vessel schema change. No areas of abnormal enhancement. Extra-axial spaces: No extra-axial collection Ventricles: Normal in size Mass effect: No mass effect Basal cisterns: Preserved Posterior fossa: No tonsillar herniation Vascular system: Normal vascular flow voids Calvarium: Normal Sella: Normal Visualized paranasal sinuses/mastoid: Clear Visualized orbits: Normal Internal auditory canals: The 7th and 8th nerve complexes are unremarkable. There is no abnormal enhancement or mass. Inner ear structures maintain normal signal and morphology. IMPRESSION: No acute intracranial abnormality. Signed by: Jose Cruz Cornell III, MD, 02/18/2023 7:04 AM, Workstation ID: [id number] Final Dictated by:MD Cornell Paul L Dictated DT/TM:02/18/2023 7:04 Signed by:MD Cornell Paul L Signed (Electronic Signature):02/18/2023 7:04 a Patient Care team information Care Team Personnel Name: DO Bender Earle S Position: Referring Member Role: Primary Care Provider Address: Address: [address], [address] [place] [address] [place] Care Team Related Persons Name: LAN CONCEPCION Address: [address] [place], [id number] Name: LAN CONCEPCION Address: [address] [place] [id number]
--- OUTSIDE RECORDS SUMMARY | 2023-07-18 03:47 | External Medical Summary ---
Author Name Unknown Address Unknown Organization [facility] [address] [place] Laboratory Report Ordering Provider Test Date Status Napoleon Hanna 02/15/2023 09:36:15 Final Observation Date Value Abnormality Reference (Units ) Status Glucose [Mass/volume] in Serum or Plasma 02/15/2023 12:27:24 128 Above high normal 50-99 (MG/DL) Final The Reference Range listed i s for fasting blood Glucose only. Urea nitrogen [Mass/volume] in Serum or Plasma 02/15/2023 12:27:24 16 8-25 (MG/DL) Final Urea nitrogen/Creatinine [Ma ss Ratio] in Serum or Plasma 02/15/2023 12:27:24 16 10-20 Final Creatinine [Mass/volume] in Serum or Plasma 02/15/2023 12:27:24 0.97 0.45-1.10 (MG/DL) Fin al eGFR is calculated by the CK D-EPI
Creatinine equation (2020). *
eGFR
(mL/min/1.73) Category/Term
>or= 90 G1/Normal or high
60-89 G2/Mildly Decreased
45-59 G3a/Mildly to moderately decreased
30-44 G3b/Moderately to severely decreased
15-29 G4/Severely decreased
<15 G5/Kidney Failure
*Note New 2020 equation. For more information on GFR and estimating equations,
visit: http://www.kidney.org/professionals/kdoqi/gfr.cfm Sodium [Moles/volume] in Ser um or Plasma 02/15/2023 12:27:24 138 132-145 (MMOL/L) Taylor l Potassium [Moles/volume] in Serum or Plasma 02/15/2023 12:27:24 4.2 3.5-5.1 (MMOL/L) Taylor l Chloride [Moles/volume] in S ruby or Plasma 02/15/2023 12:27:24 104 97-109 (MMOL/L) Final Bicarbonate [Moles/volume] i n Plasma 02/15/2023 12:27:24 25.7 22.0-29.0 (MMOL/L) Fi nal Anion gap 3 in Serum or Plasma 02/15/2023 12:27:24 8 5-15 (MMOL/L) Final Osmolality of Serum or Plasm a by calculation 02/15/2023 12:27:24 279 275-300 (MOSM/KG) Fin al Calcium [Mass/volume] in Ser um or Plasma 02/15/2023 12:27:24 9.3 8.5-10.5 (MG/DL) Taylor l Protein [Mass/volume] in Ser um or Plasma 02/15/2023 12:27:24 6.5 5.4-8.0 (G/DL) Final Albumin [Mass/volume] in Ser um or Plasma by Bromocresol green (BCG) dye binding method 02/15/2023 12:27:24 4.3 2.9-4.6 (G/DL) Final Bilirubin.total [Mass/volume ] in Serum or Plasma 02/15/2023 12:27:24 0.8 0.2-1.2 (MG/DL) Fi nal Aspartate aminotransferase [Enzymatic activity/volume] in Serum or Plasma 02/15/2023 12:27:24 21 7-40 (UNIT/L) Taylor l Alanine aminotransferase [Enzymatic activity/volume] in Serum or Plasma 02/15/2023 12:27:24 35 10-60 (UNIT/L) Fin al Alkaline phosphatase [Enzyma tic activity/volume] in Serum or Plasma 02/15/2023 12:27:24 65 40-150 (UNIT/L) Final Performing Location [facility] [address] [place]
--- OUTSIDE RECORDS SUMMARY | 2023-07-18 03:47 | External Medical Summary ---
[...] on GFR and estimating equations,
visit: http://www.kidney.org/professionals/kdoqi/gfr.cfm Glomerular filtration rate/1.73 sq M.predicted [Volume Rate/Area] in Serum, Plasma or Blood by Creatinine-based formula (CKD-EPI) 02/15/2023 12:27:25 86 >=60 (ML/MIN/1.73 M2) Final Sodium [Moles/volume] in Ser um or Plasma 02/15/2023 12:27:24 138 132-145 (MMOL/L) Taylor l Potassium [Moles/volume] in Serum or Plasma 02/15/2023 12:27:24 4.2 3.5-5.1 (MMOL/L) F inal Chloride [Moles/volume] in Serum or Plasma 02/15/2023 12:27:24 104 97-109 (MMOL/L) Fi nal Bicarbonate [Moles/volume] i n Plasma 02/15/2023 12:27:24 25.7 22.0-29.0 (MMOL/L) Fi nal Anion gap 3 in Serum or Plasma 02/15/2023 12:27:24 8 5-15 (MMOL/L) Final Osmolality of Serum or Plasm a by calculation 02/15/2023 12:27:24 279 275-300 (MOSM/KG) F inal Calcium [Mass/volume] in Ser um or Plasma 02/15/2023 12:27:24 9.3 8.5-10.5 (MG/DL) Taylor l Protein [Mass/volume] in Ser um or Plasma 02/15/2023 12:27:24 6.5 5.4-8.0 (G/DL) Final Albumin [Mass/volume] in Ser um or Plasma by Bromocresol green (BCG) dye binding method 02/15/2023 12:27:24 4.3 2.9-4.6 ( G/DL) Final Bilirubin.total [Mass/volume ] in Serum or Plasma 02/15/2023 12:27:24 0.8 0.2-1.2 (MG/DL) Final Aspartate aminotransferase [Enzymatic activity/volume] in Serum or Plasma 02/15/2023 12:27:24 21 7-40 (UNIT/L) Taylor l Alanine aminotransferase [Enzymatic activity/volume] in Serum or Plasma 02/15/2023 12:27:24 35 10-60 (UNIT/L) Fin al Alkaline phosphatase [Enzymatic activity/volume] in Serum or Plasma 02/15/2023 12:27:24 65 40-150 (UNIT/L) Fi nal Performing Location [facility] [address] [place] [id number]
--- OUTSIDE RECORDS SUMMARY | 2023-07-18 03:47 | External Medical Summary ---
Author Name Unknown Address Unknown Organization [facility] [address] [place] Laboratory Report Ordering Provider Test Date Status Victorino Orr 05/10/2023 10:00:00 Final Observation Date Value Abnormality Reference (Units ) Status Prostate specific Ag [Mass/volume] in Serum or Plasma 05/10/2023 12:19:08 1.67 0.00-4.00 (NG/ML) Final This test was performed nadira morataya the [employer] Hybritech Prostate Specific
Antigen Assay; Hybritech Calibration. Values obtained from different assay
methods cannot be used interchangeably. Performing Location [facility] [address] [place]3
--- OUTSIDE RECORDS SUMMARY | 2023-07-18 03:47 | External Medical Summary | Continuity of Care Document ---
Author Name Unknown Organization [facility] [address] Address [address] [place] [id number] Care Team Providers Care Paint Brush Maker Name Role Phone Jacques Bender Primary Care Physician [phone] Encounter [facility] [id number] Date(s): 05/10/23 - 05/10/23 [facility] [address] [facility] [place] Discharge Disposition: Home or Self Care Attending Physician: MD Gleason Shawn E Referring Physician: MD Gleason Shawn E Problem List Diagnosis Diagnosis Type Effective Dates Health Status Cl inical Service Informant Elevated prostate specific antigen [PSA] 05/10/23 Non-Specified Results Laboratory List Name Date PSA Diagnostic. 05/10/23 Most recent to oldest [Reference Range]: 1 PSA Total [0.00-4.00 ng/mL] 1.67 ng/mL 1 (05/10/23 10:00 AM) 1Interpretive Data: This test was performed using the [employer] Prostate Specific Antigen Assay; [employer] Calibration. Values obtained from different assay methods cannot be used interchangeably. Patient Care team information Care Team Personnel Name: DO Bneder Earle S Position: Referring Member Role: Primary Care Provider Address: Address: [address], [address] [place] Care Team Related Persons Name: LAN CONCEPCION Address: home [address] [place], [id number] Name: LAN CONCEPCION Address: home [address] [place] [id number]
--- OUTSIDE RECORDS SUMMARY | 2023-07-18 03:47 | External Medical Summary ---
Author Name Unknown Address Unknown Organization [facility] [address] [place]avinia CABALLERO Laboratory Report Ordering Provider Test Date Status Napoleon Hanna 02/15/2023 09:36:15 Final Observation Date Value Abnormality Reference (Units ) Status Hemoglobin A1c/Hemoglobin.total in Blood by Electrophoresis 02/15/2023 14:24:01 6.7 Above high normal 4.0-5.6 (%) Final The Hgb A1c test measures th e average blood glucose and diabetes
is diagnosed at an A1c of greater than or equal to 6.5%

Normal A1c Less than 5.7 %
Prediabetes 5.7 to 6.4 %
Diabetes 6.5 % or higher

[place] [employer], Understanding A1C DOI: July 2022 Glucose mean value [Mass/vol ume] in Blood Estimated from glycated hemoglobin 02/15/2023 14:24:01 146 (MG/DL) Final Estimated Average Glucose is a calculated value from HbA1c and is inbound call center representative of the average blood glucose level in the last 4 month period. The calculation is based on the relationship derived in the ADAG study (9163-2204), using NGSP referenced HbA1c levels.
Decreased RBC survival will result in lower eAG results. Causes include anemia, hemolytic disease, renal or hepatic disease, and certain hemoglobinopathies. Victor M SHI, September 2018 Performing Location [facility] [address] Valerie CABALLERO
--- OUTSIDE RECORDS SUMMARY | 2023-07-18 03:47 | External Medical Summary | Continuity of Care Document ---
Author Name Unknown Organization [facility] [address] Address [address] [facility] [place] [id number] Care Team Providers Care Matrix Drier Tender Name Role Phone Jacques Bender Primary Care Physician [phone] Encounter R SAMMIE [id number] Date(s): 02/15/23 - 02/15/23 [facility] [id number] Located Within [facility] [place] Discharge Disposition: Home or Self Care Attending Physician: DO Bender Earle S Referring Physician: DO Bender Earle S Problem List Diagnosis Diagnosis Type Effective Dates Health Status Clinical Service Informant Type 2 diabetes mellitus without complications 02/15/23 Non-Specified Encounter for screening for lipoid disorders 02/15/23 Non-Specified Type 2 diabetes mellitus without complications 02/15/23 Non-Specified Encounter for screening for lipoid disorders 02/15/23 Non-Specified Type 2 diabetes mellitus without complications 02/15/23 Non-Specified Encounter for screening for lipoid disorders 02/15/23 Non-Specified Results Laboratory List Name Date Comprehensive Metabolic Panel. 02/15/23 Hemoglobin A1c w/eAG. 02/15/23 Lipid Panel. 02/15/23 Most recent to oldest [Reference Range]: 1 eGFR CKD-EPI [>=60 mL/min/1.73 m2] 86 mL /min/1.73 m2 (02/15/23 9:36 AM) BUN/Creat Ratio [10-20] 16 (02/15/23 9:36 AM) Osmolality Calc [275-300 mOsm/kg] 279 mO sm/kg (02/15/23 9:36 AM) Cardiac Risk ratio [0.00-4.49] 3.79 1 (02/15/23 9:36 AM) CO2 [22.0-29.0 mmol/L] 25.7 mmol/L (02/15/23 9:36 AM) Est Avg Glucose 146 mg/dL 2 *NA* (02/15/23 9:36 AM) Anion Gap [5-15 mmol/L] 8 mmol/L (02/15/23 9:36 AM) Alb [2.9-4.6 g/dL] 4.3 g/dL (02/15/23 9:36 AM) Alk Phos [40-150 unit/L] 65 unit/L (02/15/23 9:36 AM) ALT [10-60 unit/L] 35 unit/L (02/15/23 9:36 AM) AST [7-40 unit/L] 21 unit/L (02/15/23 9:36 AM) BUN [8-25 mg/dL] 16 mg/dL (02/15/23 9:36 AM) Ca [8.5-10.5 mg/dL] 9.3 mg/dL (02/15/23 9:36 AM) Chol [100-200 mg/dL] 159 mg/dL 3 (02/15/23 9:36 AM) Cl- [97-109 mmol/L] 104 mmol/L (02/15/23 9:36 AM) Cret [0.45-1.10 mg/dL] 0.97 mg/dL 4 (02/15/23 9:36 AM) HbA1c [4.0-5.6 %] 6.7 % 5 *HI* (02/15/23 9:36 AM) Glu [50-99 mg/dL] 128 mg/dL 6 *HI* (02/15/23 9:36 AM) HDL [35-85 mg/dL] 42 mg/dL (02/15/23 9:36 AM) K [3.5-5.1 mmol/L] 4.2 mmol/L (02/15/23 9:36 AM) LDL Chol, Calculated [0-99 mg/dL] 79 mg/ dL (02/15/23 9:36 AM) Na [132-145 mmol/L] 138 mmol/L (02/15/23 9:36 AM) T Bili [0.2-1.2 mg/dL] 0.8 mg/dL (02/15/23 9:36 AM) Prot [5.4-8.0 g/dL] 6.5 g/dL (02/15/23 9:36 AM) TG [30-190 mg/dL] 189 mg/dL 7 (02/15/23 9:36 AM) 1Result Comment: Average risk of CHD 2Interpretive Data: Estimated Average Glucose is a calculated value from HbA1c and is representativeof the average blood glucose level in the last 4 month period. The calculation is based on the relationship derived in the ADAG study ([id number]), using NGSP referenced HbA1c levels. Decreased RBC survival will result in lower eAG results. Causes include anemia, hemolytic disease, renal or hepatic disease, and certain hemoglobinopathies. Victor M SHI, September 2018 3Interpretive Data: Metamizole (Dipyrone) may falsely lower test results. 4Result Comment: eGFR is calculated by the CKD-EPI Creatinine equation (2020). * eGFR (mL/min/1.73) Category/Term >or= 90 G1/Normal or high 60-89 G2/Mildly Decreased 45-59 G3a/Mildly to moderately decreased 30-44 G3b/Moderately to severely decreased 15-29 G4/Severely decreased <15 G5/Kidney Failure *Note New 2020 equation. For more information on GFR and estimating equations, visit: http://www.kidney.org/professionals/kdoqi/gfr.cfm 5Interpretive Data: The Hgb A1c test measures the average blood glucose and diabetes is diagnosed at an A1c of greater than or equal to 6.5% Normal A1c Less than 5.7 % Prediabetes 5.7 to 6.4 % Diabetes 6.5 % or higher [place] [employer], Understanding A1C DOI: July 2022 6Interpretive Data: The Reference Range listed is for fasting blood Glucose only. 7Interpretive Data: Metamizole (Dipyrone) may falsely lower test results. Patient Care team information Care Team Personnel Name: DO Bender Earle S Position: Referring Member Role: Primary Care Provider Address: Address: [address], [address] [place] [address] [place] Care Team Related Persons Name: LAN CONCEPCION Address: [address] [place], [id number] Name: LAN CONCEPCION Address: [address] [place] [id number]
--- OUTSIDE RECORDS SUMMARY | 2023-07-18 03:47 | External Medical Summary ---
Author Name Unknown Address Unknown Organization [facility] [address] [place]avin[place] CABALLERO Laboratory Report Ordering Provider Test Date Status Napoleon Hanna 02/15/2023 09:36:15 Final Observation Date Value Abnormality Reference (Units ) Status Cholesterol [Mass/volume] in Serum or Plasma 02/15/2023 12:27:24 159 100-200 (MG/DL) Final Metamizole (Dipyrone) may fa lsely lower test results. Cholesterol in HDL [Mass/vol ume] in Serum or Plasma 02/15/2023 12:27:24 42 35-85 (MG/DL) Taylor l Triglyceride [Mass/volume] i n Serum or Plasma 02/15/2023 12:27:24 189 30-190 (MG/DL) Final Metamizole (Dipyrone) may fa lsely lower test results. Cardiac heart disease risk [ Ratio] in Serum or Plasma 02/15/2023 12:27:24 3.79 0.00-4.49 Final Average risk of CHD Cholesterol in LDL [Mass/vol ume] in Serum or Plasma by calculation 02/15/2023 12:27:24 79 0-99 (MG/ DL) Final Performing Location [facility] [address] [place] CABALLERO
--- NOTE | 2023-07-18 07:08 | Discharge Summary ---
Date of Service July 18, 2023 Admission HPI Per Admitting Provider 68 year old male with a past medical history of HLD, neuropathy, hypothyrosis, HTN, DM2, GERD presenting after near syncopal episode. Is from the [place] area, came here for [employer] concert. When leaving the concert began to feel lightheaded. Within a few seconds noticed weakness of left leg. Was able to walk out of the building and symptoms resolved within a few minutes. Notes that he was had episodes of lightheadedness like this before, twice in the last year but they normally normally last about 30s. Denies headache, vision change, chest pain, dyspnea. Symptoms have resolved. Denies any further dizziness, lightheadedness, weakness. In ED: CT Head, CTA Head/Neck unremarkable Admission Exam Per Admitting Provider Constitutional: well-appearing, no acute distress HEENT: NCAT, no conjunctival injection CV: regular rhythm, no murmur appreciated, extremities well-perfused, no LE edema Resp: CTABL, no wheezes/rales/rhonchi appreciated, no increased work of breathing GI: soft, nondistended, nontender MSK: no gross deformities appreciated Skin: warm, dry, no rash appreciated Neuro: alert, oriented, no focal neurologic deficit appreciated. CN II-XII intact, PERRLA, EOMI, Strength 5/5 UE/LE B/L Principal Diagnosis TIA Discharge Exam Constitutional: well-appearing, no acute distress HEENT: NCAT, no conjunctival injection CV: regular rhythm, no murmur appreciated, extremities well-perfused, no LE edema Resp: CTABL, no wheezes/rales/rhonchi appreciated, no increased work of breathing GI: soft, nondistended, nontender MSK: no gross deformities appreciated Skin: warm, dry, no rash appreciated Neuro: alert, oriented, no focal neurologic deficit appreciated. CN II-XII intact, PERRLA, EOMI, Strength 5/5 UE/LE B/L Discharge Data Allergies Allergy/AdvReac Type Severity Reaction Status Date / Time No Known Allergies Allergy Verified 07/16/23 23:50 Consultations 07/17/23 01:48 ED Decision to Admit Stat Ordered Studies 07/16/23 23:27 CT angio head w con Stat CT angio neck with con Stat CT head/brain wo con Stat 05/01/24 02:40 MR brain wo con Routine Hospital Course (1) TIA (transient ischemic attack): - Presentation concerning for acute TIA given LLE weakness, now resolved - Patient with multiple similar episodes which included lightheadedness, and diaphoresis in the past Differential includes arrhythmias, notably bradyarrhythmias as patient notes low BPs at home into 40s Recommend outpatient cardiac monitoring w/ PCP - Head CT & Neck/Head CTA unremarkable - Brain MRI negative - TTE w/o valvular or wall motion anomalies, EF 55-60% - S/p 325 mg Aspirin on admission, continue DAPT w/ Aspirin 81 mg and Plavix 75 mg for at least 21 days post TIA - Increase statin to high intensity dosing, now on Atorvastatin 40 mg PO daily Lipid profile unremarkable - Continue to modify risk factors including smoking hx, HTN, HLD, and DM Further management as below (2) HLD (hyperlipidemia): - As above (3) HTN (hypertension): - Losartan held for permissive HTN (4) Hypothyroid: - continue levothyroxine - elevated TSH, with normal free T4; would repeat in 4-6 weeks after acute illness (5) DM2 (diabetes mellitus, type 2): - hold metformin, SSI while in patient - A1c elevated to 7.8, consider regimen modifications as outpatient - Target A1c < 7 (6) Neuropathy: - continue gabapentin (7) GERD (gastroesophageal reflux disease): - continue pantoprazole Plan Diet: DM2, Heart Healthy VTE Prophylaxis: Lovenox Code: Full Total Time Total Time Spent Total Time Spent (In Minutes): <30 Discharge Plan Discharge Items Patient Disposition: Home - Self-Care Reason For Visit: TIA Discharge Diagnosis: TIA Activity: Resume your previous activity Non-emergency contact: Primary Care Provider Call non-emergency contact if: you have any medication questions and your symptoms worsen Follow-up/Referrals: Jacques Bender, [Primary Care Provider] - Diet: Carb Consistent or DM2 and Heart Healthy Addtl Attending Provider Instructions: You presented to the hospital with left leg weakness, lightheadedness, and diaphoresis (sweating), your inpatient testing was negative, and thus it was concluded that you experienced a TIA (transient ischemic attack, or mini- stroke). In order to reduce the risk of a TIA happening again or progressing to a stroke, you were started on Aspirin 81 mg and Plavix (Clopidogrel) 75 mg, please take these medications daily for at least 21 days, but review the duration with your primary care provider. Furthermore, your dose of statin therapy was increased to a higher intensity at Atorvastatin 40 mg. You were monitored inpatient for any arrhythmias, but the potential of arrhythmia occurring during these episodes cannot be excluded, please follow up with your primary physician regarding the completion of a operations intelligence. Resume the rest of your home medications upon discharge and follow up with your PCP within 1 week. It was a pleasure to be a part of your care and we wish you the best in your health and recovery. Pending Studies at Discharge: No Stand-Alone Forms: [facility], Smoking Cessation Medications and DC Order Prescriptions: New atorvastatin 40 mg Tablet 40 mg PO DAILY Qty: 30 0RF clopidogrel 75 mg Tablet 75 mg PO QAM Qty: 30 0RF aspirin 81 mg Tablet,Delayed Release (Dr/Ec) 81 mg PO QAM Qty: 30 0RF Continued metformin 500 mg Tablet 500 mg PO BID gabapentin 600 mg Tablet 600 mg PO HS tamsulosin [Flomax] 0.4 mg Capsule 0.4 mg PO DAILY levothyroxine 50 mcg Tablet 50 mcg PO DAILY losartan 100 mg Tablet 100 mg PO DAILY yjytqhtjciku-jyidypgy-jypqgy Tablet 1 tab PO DAILY omeprazole 20 mg Tablet,Delayed Release (Dr/Ec) 20 mg PO DAILY cholecalciferol (vitamin D3) [Vitamin D3] 125 mcg (5,000 unit) Tablet 125 mcg PO Q OTHER DAY Rx Instructions: ALTERNATES WITH VITAMIN B 12 EVERY OTHER NIGHT cyanocobalamin (vitamin B-12) [Vitamin B-12] 5,000 mcg Tablet, Sublingual 5,000 mcg SUBLINGUAL Q OTHER DAY Rx Instructions: ALTERNATES EVERY OTHER NIGHT WITH VITAMIN D3 Discontinued atorvastatin [Lipitor] 20 mg Tablet 20 mg PO DAILY Discharge Orders: Discharge Order (Routine); Ordered 07/18/23 Ordered By: Lazara Tony Admission Data Admit Date/Time: 07/17/23 02:21 Attending Provider: Mercedes Mccoy Admit Provider: Tamela Nagy Primary Care Provider: Jacques Bender Other Providers: Jessee Rojas Other Interventions: Discharge Summary Assessment (RN) Last Done: 07/18/23 11:08 Supervising Physician Co-Signing Physician Notes Attending Physician Supervision Note: I independently interviewed and examined the patient and verified the leung history and physical, reviewed labs and image studies and agree with findings and care plan noted above. Left leg weakness with difficulty ambulation and associated dizziness - Likely TIA -high risk for TIA - brain MRI neg. DAPT initiated and statin increased to moderate intensity. -continue other risk factor modifications as outpatient. Dizziness - -no arrhythmia noted during hospital stay. Echo with LVH. -continue BP monitoring as outpatient for control and fluctuations. On flomax and possibly could be orthostatic - outpatient f/u. -symptoms resolved after admission with no recurrence. Resident Activity Tracking Resident Involvement: Resident Care Provided Care Provided: Adult Hospital Medicine
[2023-07-18 07:14] LABS: Basophils # (auto) 0.04 K/uL (0.00-0.20); Basophils % (auto) 0.4 %; Eosinophils # (auto) 0.07 K/uL (0.00-0.50); Eosinophils % (auto) 0.7 %; Hematocrit (blood only) 39.2 % (42.0-52.0); Hemoglobin 13.7 g/dl (14.0-18.0); Immature Granulocytes # (auto) 0.05 K/uL (0.01-0.20); Immature Granulocytes % (auto) 0.5 %; Lymphocytes % (auto) 17.1 %; Mean Corpuscular Hemoglobin 30.9 pg (25.0-34.0); Mean Corpuscular Hgb Conc 34.9 g/dL (32.0-36.0); Mean Corpuscular Volume 88.3 fL (80.0-100.0); Mean Platelet Volume 10.6 fL (9.4-12.4); Monocytes # (auto) 0.53 K/uL (0.11-0.59); Monocytes % (auto) 5.3 %; Neutrophils # (auto) 7.55 K/uL (1.40-6.50); Platelet Count 258 K/uL (130-400); RDW Coefficient of Variation 11.2 % (11.5-14.5); Red Blood Count 4.44 M/uL (4.70-6.10); White Blood Count 9.94 K/ul (4.8-10.8)
[2023-07-18 08:01] LABS: BUN Creatinine Ratio 19.8 (10-20); Est GFR (African American) 88.8 ml/min; Est GFR (Non-African American) 76.6 ml/min; Potassium 4.3 mmol/L (3.5-5.1)
--- NOTE | 2023-07-18 08:09 | XCELERA ---
[id number] [id number]
[2023-07-18] MEDS ORDERED: CHOLECALCIFEROL 125 MCG (5,000 UNITS) TAB PO SCH (21:00)
--- NOTE | 2023-07-19 10:59 | Electrocardiogram Report ---
Test Reason : Blood Pressure : / mmHG Vent. Rate : 063 BPM Atrial Rate : 063 BPM P-R Int : 172 ms QRS Dur : 086 ms QT Int : 360 ms P-R-T Axes : 054 038 053 degrees QTc Int : 368 ms Sinus rhythm with occasional Premature ventricular complexes Nonspecific T wave abnormality Abnormal ECG No previous ECGs available Confirmed by Jake Vazquez ([id number]) on 07/19/2023 10:58:54 AM Referred By: REFERRED SELF Confirmed By:Jake Vazquez
== END 2023-07-18 12:02 | disposition home or self-care (01) ==
LOC: EDINP 21:31 → ED 21:31 → SUATTDRO 07-17 02:21 → EDINP 07-17 03:00 → 2N 07-17 18:44